=== PATIENT | female | born 1970 | race American Indian/Alaskan Native ===

== ENCOUNTER 2017-05-12 15:21 | Inpatient (IN) | payer MEDICARE, OTHER ==
[2017-05-12 15:21] VITALS: BMI 32.8
[2017-05-12 16:19] LABS: BASO # 0.1 K/uL (0.0-0.2); BASO % 0.9 % (0.0-2.0); EOS % 0.7 % (0.0-4.0); HEMOGLOBIN 9.3 g/dL (11.0-16.0); LYMPH # 1.1 K/uL (1.0-4.3); LYMPH % 18.4 % (20.0-40.0); MEAN CELL VOLUME 67.6 fL (81.0-99.0); MEAN CORPUSCULAR HEMOGLOBIN 20.4 pg (27.0-31.0); MEAN CORPUSCULAR HGB CONC 30.2 g/dL (33.0-37.0); MEAN PLATELET VOLUME 9.3 fL (7.2-11.7); MONO # 0.4 K/uL (0.0-0.8); MONO % 6.5 % (0.0-10.0); NEUT # 4.5 K/uL (1.8-7.0); NEUT % 73.5 % (50.0-75.0); RBC 4.53 Mil/uL (3.80-5.20); RED CELL DISTRIBUTION WIDTH 19.2 % (11.5-14.5); WHITE BLOOD COUNT 6.1 K/uL (4.8-10.8)
[2017-05-12 16:30] LABS: BLOOD UREA NITROGEN 10 mg/dL (7-17); CALCIUM 9.4 mg/dl (8.6-10.4); GFR AFRICAN-AMERICAN > 60; GFR NON-AFRICAN AMERICAN > 60
--- NOTE | 2017-05-12 16:37 | C.PDOC ---
History Of Present Illness 46 yo female w/o significant PMHx come in for evaluation of gradual worsening of painful mass under left breast for past week. Pt sts, was seen by PMD who contacted surgery , recommend go to ED for further treatment. Pt denies frever, chills, known trauma or injury, previous breast condition/ds, denies wound discharge. Ambulate to Ed for evaluation, not in any apparent distress. Time Seen by Provider: 05/12/17 15:47 Chief Complaint (Nursing): Breast Problem History Per: Patient Past Medical History Reviewed: Historical Data, Nursing Documentation, Vital Signs Vital Signs: Last Vital Signs Temp 97.8 F 05/12/17 15:23 Pulse 81 05/12/17 15:23 Resp 20 05/12/17 15:23 BP 139/81 05/12/17 15:23 Pulse Ox 97 05/12/17 16:36 - Medical History PMH: Anemia Denies: Alzheimer's Disease, Anxiety, Arthritis, Asthma, Bipolar Disorder, Bronchitis, Cardia Arrhythmia, CHF, COPD, Crohn's Disease, Dementia, Depression , Diverticulitis, Emphysema, Fibromyalgia, Fractures, Gastrointestinal Ulcer, Gall Bladder Disease, HIV, HTN, Hypercholesterolemia, Hyperthyroidism, Hypothyroidism, Kidney Stones, Migraine, Mitral Valve Prolapse, Osteoporosis, Pancreatitis, Paranoia, Parkinson's Disease, Peripheral Edema, Pneumonia, Post Traumatic Stress Disorder, Chronic Kidney Disease, Schizophrenia, Seizures, Sickle Cell Disease, Sexually Transmitted Disease, Sleep Apnea, TIA Surgical History: Denies: Appendectomy, Cholecystectomy, Coronary Stent, Pacemaker - [facility] Procedures FLUOROSCOPY OF LEFT HEART USING LOW OSMOLAR CONTRAST (07/06/16) FLUOROSCOPY OF MULT COR ART USING L OSM CONTRAST (07/06/16) INSPECTION OF UPPER INTESTINAL TRACT, ENDO (07/06/16) MEASURE OF CARDIAC SAMPL & PRESSURE, L HEART, PERC APPROACH (07/06/16) TRANSFUSE NONAUT RED BLOOD CELLS IN PERIPH VEIN, PERC (07/06/16) Family History: States: No Known Family Hx - Social History Hx Alcohol Use: Yes Hx Substance Use: No (occ marijuana) - Immunization History Hx Tetanus Toxoid Vaccination: No Hx Influenza Vaccination: No Hx Pneumococcal Vaccination: No Review Of Systems Except As Marked, All Systems Reviewed And Found Negative. Constitutional: Negative for: Fever, Chills ENT: Negative for: Throat Pain Cardiovascular: Negative for: Chest Pain Respiratory: Negative for: Cough, Shortness of Breath, Wheezing Skin: Positive for: Lesions Neurological: Negative for: Altered Mental Status, Headache, Dizziness Physical Exam - Physical Exam Appears: Well, Non-toxic, No Acute Distress Skin: Normal Color, Warm, Other (Left breast: (+)tender mass 4cm diameter under breast at 6 o'clock, mild surrounding erythema, (+) flactulance. No proximal streaking.) Eye(s): bilateral: PERRL Oral Mucosa: Moist Throat: No Drooling Neck: Trachea Midline, Supple Lymphatic: No Axilla Node Tenderness (B/L) Cardiovascular: Rhythm Regular, No Murmur, No JVD Respiratory: No Decreased Breath Sounds, No Accessory Muscle Use, No Stridor, No Wheezing Gastrointestinal/Abdominal: Soft, No Tenderness Extremity: No Pedal Edema, No Deformity, No Swelling Neurological/Psych: Oriented x3, Normal Speech ED Course And Treatment - Laboratory Results Result Diagrams: 05/12/17 16:15 05/12/17 16:15 Lab Interpretation: No Changes Compared To Prior Results O2 Sat by Pulse Oximetry: 97 Pulse Ox Interpretation: Normal Progress Note: case discussed with , admission to OR to his service recommend. Discussed with pt, agrees with plan. Disposition - Disposition Disposition: HOSPITALIZED Disposition Time: 16:34 Condition: STABLE - Clinical Impression Clinical Impression: Abscess of breast
[2017-05-12 17:11] LABS: INR 1.1
[2017-05-12 18:04] LABS: HCG,QUALITATIVE URINE NEGATIVE (NEGATIVE); SQUAMOUS EPITHIAL 5 /hpf (0-5); URINE BACTERIA RARE (<OCC); URINE BILIRUBIN NEGATIVE (NEGATIVE); URINE BLOOD NEGATIVE (NEGATIVE); URINE CLARITY Hazy (Clear); URINE COLOR Yellow (YELLOW); URINE GLUCOSE (UA) NORMAL (Normal); URINE LEUKOCYTE ESTERASE NEG Leu/uL (Negative); URINE PROTEIN NEGATIVE (NEGATIVE); URINE UROBILINOGEN NORMAL mg/dL (0.2-1.0)
[2017-05-12] MEDS ORDERED: ceFAZolin IV 1 gm in Dextrose 1 GM/50 ML BAG IVPB ONE (18:11)
[2017-05-12] MEDS ORDERED: HYDROmorphone 0.5 mg/0.5 ml ISec IVP PRN (18:32)
[2017-05-12] MEDS ORDERED: Propofol 10 mg/ml Inj (20 ML) ONE (18:53)
[2017-05-12] MEDS ORDERED: Midazolam 2 MG/2 ML VIAL ONE (18:53)
[2017-05-12] MEDS ORDERED: Lactated Ringer's 1,000 ML IV ONE (19:00)
[2017-05-12] MEDS ORDERED: Oxycodone/Acetaminophen 5/325 mg Tab PO PRN (21:26)
[2017-05-12] MEDS: Sodium Chloride 0.45% 1,000 ML IV SCH (22:29)
[2017-05-12] MEDS: ceFAZolin 1 GM in Sodium Chloride 0.9% 100 ML IVPB SCH (23:55)
[2017-05-13] MEDS ORDERED: Pneumococcal 23-Valent Vaccine IM ONE (05:06)
[2017-05-13] MEDS ORDERED: Influenza Vaccine 60 mcg/0.5 mL SYR (4YR UP) IM ONE (05:07)
--- NOTE | 2017-05-13 07:16 | OP ---
PROCEDURE DATE: 05/12/2017 PREOPERATIVE DIAGNOSIS: Abscess of the left breast. POSTOPERATIVE DIAGNOSIS: Abscess of the left breast. PROCEDURE PERFORMED: Drainage of abscess and excision of infected cyst of the left breast. SURGEON: Derrek Barnard MD ANESTHESIA: General. BLOOD LOSS: 30 mL. POSTOPERATIVE CONDITION: Stable. INDICATIONS FOR SURGERY: This is a 46-year-old female with a large abscess of the left breast, admitted for incision and drainage. DESCRIPTION OF PROCEDURE: The patient was taken to the operating room, general anesthesia was administered. The left breast was prepped and draped. An elliptical incision was made surrounding the abscess cavity. A mixture of pus and sebum were encountered and a large infected sebaceous cyst was excised and pus was drained. Bleeding was controlled using the Bovie. Blood vessel at the base near the chest wall was repaired. The wound was irrigated with copious amounts of saline solution. A full-thickness tissue flap closure was performed at the periphery. Central portion of wound was packed with wet saline gauze. The patient tolerated the procedure well and returned to recovery room in stable condition. Derrek Barnard MD
[2017-05-13] MEDS: ceFAZolin 1 GM in Sodium Chloride 0.9% 100 ML IVPB SCH ×4 (08:07→23:30)
[2017-05-13 11:30] LABS: BASO % 0.9 % (0.0-2.0); EOS # 0.1 K/uL (0.0-0.7); EOS % 1.4 % (0.0-4.0); HEMOGLOBIN 8.1 g/dL (11.0-16.0); LYMPH # 0.9 K/uL (1.0-4.3); MEAN CELL VOLUME 67.1 fL (81.0-99.0); MEAN CORPUSCULAR HEMOGLOBIN 21.1 pg (27.0-31.0); MEAN CORPUSCULAR HGB CONC 31.5 g/dL (33.0-37.0); MONO # 0.3 K/uL (0.0-0.8); MONO % 8.5 % (0.0-10.0); NEUT # 2.6 K/uL (1.8-7.0); NEUT % 66.2 % (50.0-75.0); NRBC % 0.1 % (0.0-2.0); RBC 3.83 Mil/uL (3.80-5.20); RED CELL DISTRIBUTION WIDTH 18.6 % (11.5-14.5); WHITE BLOOD COUNT 3.9 K/uL (4.8-10.8)
[2017-05-13 11:41] LABS: ALBUMIN 3.6 g/dL (3.5-5.0); ALT/SGPT 22 U/L (9-52); AST/SGOT 22 U/L (14-36); BLOOD UREA NITROGEN 8 mg/dL (7-17); CALCIUM 8.2 mg/dl (8.6-10.4); GFR AFRICAN-AMERICAN > 60; GFR NON-AFRICAN AMERICAN > 60
--- NOTE | 2017-05-13 12:30 | CP.PCM.CON ---
History of Present Illness - History of Present Illness History of Present Illness: 46 yo female w/o significant PMHx come in for evaluation of gradual worsening of painful mass under left breast for past week. Pt sts, was seen by PMD who contacted surgery , recommend go to ED for further treatment. Pt denies frever, chills, known trauma or injury, previous breast condition/ds, denies wound discharge. Ambulate to Ed for evaluation, not in any apparent distress. WENT TO OR FOR I AND D CULTURES PENDING - Medical History PMH: Anemia Denies: Alzheimer's Disease, Anxiety, Arthritis, Asthma, Bipolar Disorder, Bronchitis, Cardia Arrhythmia, CHF, COPD, Crohn's Disease, Dementia, Depression , Diverticulitis, Emphysema, Fibromyalgia, Fractures, Gastrointestinal Ulcer, Gall Bladder Disease, HIV, HTN, Hypercholesterolemia, Hyperthyroidism, Hypothyroidism, Kidney Stones, Migraine, Mitral Valve Prolapse, Osteoporosis, Pancreatitis, Paranoia, Parkinson's Disease, Peripheral Edema, Pneumonia, Post Traumatic Stress Disorder, Chronic Kidney Disease, Schizophrenia, Seizures, Sickle Cell Disease, Sexually Transmitted Disease, Sleep Apnea, TIA Surgical History: Denies: Appendectomy, Cholecystectomy, Coronary Stent, Pacemaker - [facility] Procedures FLUOROSCOPY OF LEFT HEART USING LOW OSMOLAR CONTRAST (07/06/16) FLUOROSCOPY OF MULT COR ART USING L OSM CONTRAST (07/06/16) INSPECTION OF UPPER INTESTINAL TRACT, ENDO (07/06/16) MEASURE OF CARDIAC SAMPL & PRESSURE, L HEART, PERC APPROACH (07/06/16) TRANSFUSE NONAUT RED BLOOD CELLS IN PERIPH VEIN, PERC (07/06/16) Review of Systems - Constitutional Constitutional: As Per HPI - EENT Eyes: absent: As Per HPI, Blind Spots, Blurred Vision, Change in Vision, Decreased Night Vision, Diplopia, Discharge, Dry Eye, Exophthalmos, Floaters, Irritation, Itchy Eyes, Loss of Peripheral Vision, Pain, Photophobia, Requires Corrective Lenses, Sees Flashes, Spots in Vision, Tunnel Vision, Other Visual Disturbances, Loss of Vision, Other Ears: absent: As Per HPI, Decreased Hearing, Ear Discharge, Ear Pain, Tinnitus, Abnormal Hearing, Disequilibrium, Dizziness, Other Nose/Mouth/Throat: absent: As Per HPI, Epistaxis, Nasal Congestion, Nasal Discharge, Nasal Obstruction, Nasal Trauma, Nose Pain, Post Nasal Drip, Sinus Pain, Sinus Pressure, Bleeding Gums, Change in Voice, Dental Pain, Dry Mouth, Dysphagia, Halitosis, Hoarsness, Lip Swelling, Mouth Lesions, Mouth Pain, Odynophagia, Sore Throat, Throat Swelling, Tongue Swelling, Facial Pain, Neck Pain, Neck Mass, Other - Breasts Breasts: absent: As Per HPI, Change in Shape, Mass, Pain, Nipple Discharge, Nipple Inversion, Skin Changes, Swelling, Other - Cardiovascular Cardiovascular: absent: As Per HPI, Acrocyanosis, Chest Pain, Chest Pain at Rest , Chest Pain with Activity, Claudication, Diaphoresis, Dyspnea, Dyspnea on Exertion, Edema, Irregular Heart Rhythm, Pain Radiating to Arm/Neck/Jaw, Leg Edema, Leg Ulcers, Lightheadedness, Orthopnea, Palpitations, Paroxysmal Nocturnal Dyspnea, Pedal Edema, Radiating Pain, Rapid Heart Rate, Slow Heart Rate, Syncope, Other - Respiratory Respiratory: absent: As Per HPI, Cough, Dyspnea, Hemoptysis, Dyspnea on Exertion , Wheezing, Snoring, Stridor, Pain on Inspiration, Chest Congestion, Excessive Mucous Production, Change in Mucous Color, Pain with Coughing, Other - Gastrointestinal Gastrointestinal: absent: As Per HPI, Abdominal Pain, Belching, Bloating, Change in Bowel Habits, Change in Stool Character, Coffee Ground Emesis, Constipation, Cramping, Diarrhea, Dyspepsia, Dysphagia, Early Satiety, Excessive Flatus, Fecal Incontinence, Heartburn, Hematemesis, Hematochezia, Loose Stools, Melena, Nausea, Odynophagia, Temesmus, Vomiting, Other - Genitourinary Genitourinary: absent: As Per HPI, Change in Urinary Stream, Difficulty Urinating, Dysuria, Flank Pain, Hematuria, Pyuria, Nocturia, Urinary Incontinence, Urinary Frequency, Urinary Hesitance, Urinary Urgency, Voiding Freq/Small Amts, Freq UTI, Hx Renal/Bladder Calculi, Hx /Renal Surgery, Bladder Distension, Other - Reproductive: Female Reproductive:Female: absent: As Per HPI, Amenorrhea, Amenorrhea/ Control, Currently Menstual, Cycle <21 Days, Cycle >35 Days, Cycle Variable, Menses 1-7 Days, Menses >/= 8 Days, Menses Variable, Cycle > 4 Weeks Between, No Menses for 6 Months, Heavy Menses, Light Menses, Normal Menses, Spotting Between Cycles , S/P Hysterectomy, Menopausal, Post Menopausal, Premenarche, Abnormal Vaginal Bleeding, Dysmenorrhea, Dyspareunia, Genital Lesions, Genital Pruritis, Pelvic Pain, Prolapse Symptoms, Sexual Dysfunction, Vaginal Discharge, Vaginal Dryness , Vaginal Odor, Vaginal Pruritis, Other - Menstruation Menstruation: absent: As Per HPI, Amenorrhea, Amenorrhea/ Control, Currently Menstual, Cycle <21 Days, Cycle >35 Days, Cycle Variable, Menses 1-7 Days, Menses >/= 8 Days, Menses Variable, Cycle > 4 Weeks Between, No Menses for 6 Months, Heavy Menses, Light Menses, Normal Menses, Spotting Between Cycles , S/P Hysterectomy, Menopausal, Post Menopausal, Premenarche, Abnormal Vaginal Bleeding, Dysmenorrhea, Other - Musculoskeletal Musculoskeletal: absent: As Per HPI, Abnormal Gait, Arthralgias, Atrophy, Back Pain, Deformity, Joint Swelling, Limited Range of Motion, Loss of Height, Muscle Cramps, Muscle Weakness, Myalgias, Neck Pain, Numbness, Radiating Pain into Limb, Stiffness, Tingling, Other - Integumentary Integumentary: As Per HPI, Skin Pain, Wounds - Neurological Neurological: absent: As Per HPI, Abnormal Gait, Abnormal Hearing, Abnormal Movements, Abnormal Speech, Behavioral Changes, Burning Sensations, Confusion, Convulsions, Disequilibrium, Dizziness, Numbness, Focal Weakness, Frequent Falls , Headaches, Lack of Coordination, Loss of Vision, Memory Loss, Paresthesias, Radicular Pain, Restless Legs, Sensory Deficit, Syncope, Tingling, Tremor, Vertigo, Weakness, Other Visual Disturbances, Other - Psychiatric Psychiatric: absent: As Per HPI, Abnormal Sleep Pattern, Anhedonia, Anxiety, Auditory Hallucinations, Behavioral Changes, Change in Appetite, Change in Libido, Confusion, Depression, Difficulty Concentrating, Hallucinations, Homicidal Ideation, Hopelessness, Irritability, Memory Loss, Mood Swings, Panic Attacks, Paranoia, Suicidal Ideation, Visual Hallucinations, Tactile Hallucinations, Other - Endocrine Endocrine: absent: As Per HPI, Change in Body Appearance, Change in Libido, Cold Intolorance, Deepening of Voice, Excessive Sweating, Fatigue, Flushing, Heat Intolorance, Increase in Ring/Shoe/Hat Size, Palpitations, Polydipsia, Polyphagia, Polyuria, Other - Hematologic/Lymphatic Hematologic: absent: As Per HPI, Easy Bleeding, Easy Bruising, Lymphadenopathy, Other Past Patient History - Infectious Disease Hx of Infectious Diseases: None - Past Medical History & Family History Past Medical History?: Yes - Past Social History Smoking Status: Light Smoker < 10 Cigarettes Daily - CARDIAC Hx Cardiac Disorders: No Hx Cardia Arrhythmia: No Hx Congestive Heart Failure: No Hx Hypercholesterolemia: No Hx Hypertension: No Hx Mitral Valve Prolapse: No Hx Pacemaker: No Hx Peripheral Edema: No - PULMONARY Hx Respiratory Disorders: No Hx Asthma: No Hx Bronchitis: No Hx Chronic Obstructive Pulmonary Disease (COPD): No Hx Emphysema: No Hx Pneumonia: No Hx Sleep Apnea: No - NEUROLOGICAL Hx Neurological Disorder: No Hx Alzheimer's Disease: No Hx Dementia: No Hx Migraine: No Hx Parkinson's Disease: No Hx Seizures: No Hx Transient Ischemic Attacks (TIA): No - HEENT Hx HEENT Problems: No Hx Blind: No Hx Cataracts: No Hx Deafness: No Hx Difficulty Chewing: No Hx Epistaxis: No Hx Glaucoma: No Hx Macular Degeneration: No - RENAL Hx Chronic Kidney Disease: No Hx Kidney Stones: No - ENDOCRINE/METABOLIC Hx Endocrine Disorders: No Hx Hyperthyroidism: No Hx Hypothyroidism: No - HEMATOLOGICAL/ONCOLOGICAL Hx Blood Disorders: Yes Hx Anemia: Yes Hx Human Immunodeficiency Virus (HIV): No Hx Sickle Cell Disease: No - INTEGUMENTARY Hx Dermatological Problems: No Hx Basil Cell: No Hx Eczema: No Hx Melanoma: No Hx Psoriasis: No Hx Squamous Cell: No - MUSCULOSKELETAL/RHEUMATOLOGICAL Hx Musculoskeletal Disorders: No Hx Arthritis: No Hx Falls: No Hx Fractures: No Hx Osteoporosis: No - GASTROINTESTINAL Hx Gastrointestinal Disorders: No Hx Crohn's Disease: No Hx Diverticulitis: No Hx Gall Bladder Disease: No Hx Pancreatitis: No - GENITOURINARY/GYNECOLOGICAL Hx Genitourinary Disorders: No Hx Sexually Transmitted Disorders: No - PSYCHIATRIC Hx Psychophysiologic Disorder: No Hx Anxiety: No Hx Bipolar Disorder: No Hx Depression: No Hx Paranoia: No Hx Post Traumatic Stress Disorder: No Hx Schizophrenia: No Hx Substance Use: Yes (marijuana on occasion) - SURGICAL HISTORY Hx Surgeries: No Hx Appendectomy: No Hx Cholecystectomy: No Hx Coronary Stent: No - ANESTHESIA Hx Anesthesia: Yes Hx Anesthesia Reactions: No Hx Malignant Hyperthermia: No Meds Allergies/Adverse Reactions: Allergies Allergy/AdvReac Type Severity Reaction Status Date / Time No Known Allergies Allergy Verified 05/12/17 15:27 - Medications Medications: Current Medications Heparin Sodium (Porcine) (Heparin) 5,000 units SC Q12 [facility] Last Admin: 05/13/17 09:24 Dose: 5,000 units Sodium Chloride (Sodium Chloride 0.45%) 1,000 mls @ 80 mls/hr IV .[id number] [facility] Last Admin: 05/12/17 22:29 Dose: 80 mls/hr Cefazolin Sodium 1 gm/ Sodium (Chloride) 100 mls @ 200 mls/hr IVPB Q8H [facility] PRN Reason: Protocol Last Admin: 05/13/17 08:07 Dose: 200 mls/hr Ketorolac Tromethamine (Toradol) 30 mg IM Q6 PRN PRN Reason: Pain, moderate (4-7) Last Admin: 05/13/17 01:14 Dose: 30 mg Oxycodone/Acetaminophen (Percocet 5/325 Mg Tab) 1 tab PO Q4H PRN PRN Reason: Pain, moderate (4-7) Stop: 05/15/17 21:27 Physical Exam - Constitutional Appears: Non-toxic, Chronically Ill - Head Exam Head Exam: NORMOCEPHALIC - Eye Exam Eye Exam: absent: Scleral icterus - ENT Exam ENT Exam: Mucous Membranes Dry, Normal External Ear Exam - Neck Exam Neck exam: Negative for: Lymphadenopathy, Thyromegaly - Respiratory Exam Respiratory Exam: Decreased Breath Sounds, Clear to Auscultation Bilateral - Cardiovascular Exam Cardiovascular Exam: REGULAR RHYTHM, +S1, +S2 - GI/Abdominal Exam GI & Abdominal Exam: Diminished Bowel Sounds, Distended, Soft. absent: Tenderness - Rectal Exam Rectal Exam: Deferred - Exam Exam: NORMAL INSPECTION - Extremities Exam Extremities exam: Negative for: calf tenderness, pedal edema - Back Exam Back exam: absent: CVA tenderness (L), CVA tenderness (R), paraspinal tenderness - Neurological Exam Neurological exam: Alert, CN II-XII Intact, Oriented x3, Reflexes Normal - Psychiatric Exam Psychiatric exam: Normal Mood - Skin Skin Exam: Dry Additional comments: DRAINAGE UNDER LEFT BREAST PACKING IN PLACE Results - Vital Signs Recent Vital Signs: Last Vital Signs Temp 98.7 F 05/13/17 00:00 Pulse 76 05/13/17 00:00 Resp 20 05/13/17 00:00 BP 104/66 05/13/17 00:00 Pulse Ox 98 05/13/17 00:00 - Labs Result Diagrams: 05/13/17 11:18 05/13/17 11:18 Labs: Laboratory Results - last 24 hr 05/12/17 05/12/17 05/12/17 16:15 16:15 16:54 WBC 6.1 RBC 4.53 Hgb 9.3 L Hct 30.6 L MCV 67.6 L MCH 20.4 L MCHC 30.2 L RDW 19.2 H Plt Count 241 MPV 9.3 Neut % (Auto) 73.5 Lymph % (Auto) 18.4 L [place] % (Auto) 6.5 Eos % (Auto) 0.7 Baso % (Auto) 0.9 Neut # (Auto) 4.5 Lymph # (Auto) 1.1 [place] # (Auto) 0.4 Eos # (Auto) 0.0 Baso # (Auto) 0.1 Differential Comment PT 12.0 INR 1.1 APTT 27 Sodium 141 Potassium 3.8 Chloride 106 Carbon Dioxide 23 Anion Gap 15 BUN 10 Creatinine 0.6 L Est GFR ( Amer) > 60 Est GFR (Non-Af Amer) > 60 Random Glucose 83 Calcium 9.4 Phosphorus Magnesium Total Bilirubin AST ALT Alkaline Phosphatase Total Protein Albumin Globulin Albumin/Globulin Ratio Urine Color Urine Clarity Urine pH Ur Specific [place] Urine Protein Urine Glucose (UA) Urine Ketones Urine Blood Urine Nitrate Urine Bilirubin Urine Urobilinogen Ur Leukocyte Esterase Urine WBC (Auto) Urine RBC (Auto) Ur Squamous Epith Cells Urine Bacteria Urine HCG, Qual 05/12/17 05/13/17 05/13/17 17:49 11:18 11:18 WBC 3.9 L RBC 3.83 Hgb 8.1 L Hct 25.7 L MCV 67.1 L MCH 21.1 L MCHC 31.5 L RDW 18.6 H Plt Count 189 MPV 9.0 Neut % (Auto) 66.2 Lymph % (Auto) 23.0 [place] % (Auto) 8.5 Eos % (Auto) 1.4 Baso % (Auto) 0.9 Neut # (Auto) 2.6 Lymph # (Auto) 0.9 L [place] # (Auto) 0.3 Eos # (Auto) 0.1 Baso # (Auto) 0.0 Differential Comment PT INR APTT Sodium 139 Potassium 3.8 Chloride 105 Carbon Dioxide 24 Anion Gap 14 BUN 8 Creatinine 0.6 L Est GFR ( Amer) > 60 Est GFR (Non-Af Amer) > 60 Random Glucose 84 Calcium 8.2 L Phosphorus 3.2 Magnesium 1.9 Total Bilirubin 0.4 AST 22 ALT 22 Alkaline Phosphatase 89 Total Protein 7.2 Albumin 3.6 Globulin 3.6 Albumin/Globulin Ratio 1.0 Urine Color Yellow Urine Clarity Hazy Urine pH 6.0 Ur Specific [place] 1.019 Urine Protein Negative Urine Glucose (UA) Normal Urine Ketones Negative Urine Blood Negative Urine Nitrate Negative Urine Bilirubin Negative Urine Urobilinogen Normal Ur Leukocyte Esterase Neg Urine WBC (Auto) 1 Urine RBC (Auto) 2 Ur Squamous Epith Cells 5 Urine Bacteria Rare Urine HCG, Qual Negative Assessment & Plan (1) Abscess of breast Status: Acute - Assessment and Plan (Free Text) Assessment: CONT IV RX AND WOUND CARE AWAIT CULTURES TO DETERMINE IF PO OPTION EXISTS
[2017-05-13] MEDS: Sodium Chloride 0.45% 1,000 ML IV SCH ×2 (13:55→21:45)
--- NOTE | 2017-05-13 15:02 | CP.PCM.PN ---
Subjective - Date & Time of Evaluation Date of Evaluation: 05/13/17 Time of Evaluation: 07:35 - Subjective Subjective: This 46 year old female with PMHx of anemia, back pain and sciatica (on oxycodone chronically)- presents to the ED on 05/12/17 for evaluation of gradual worsening of painful mass under left breast for past week. Pt reports she was seen by PMD Dr. Marshall, who contacted surgery , who recommend her for evaluation and surgery at [facility]. At that time, pt denied frever, chills, known trauma or injury, previous breast condition, or wound discharge. Ambulate to Ed for evaluation, not in any apparent distress. Patient seen and examined at bedside this AM. She is resting comfortably s/p I& D of L breast abscess with Dr. Barnard yesterday 05/12/17. She states she is scheduled for another I&D later today. She is having normal BMs, is urinating well, and has no complaints. 12-point review of systems is otherwise negative without any additional acute complaints. PMHx: back pain, sciatica, anemia, H. Pylori infection (2017, treated) PSHx: ovarian cyst removal 2017 NKD Meds - none SocHx: active smoker, denies drinking and drugs FamHx: grand mother with heart dx and from stroke Objective - Vital Signs/Intake and Output Vital Signs (last 24 hours): Temp Pulse Resp BP Pulse Ox 98.7 F 76 20 104/66 98 05/13/17 00:00 05/13/17 00:00 05/13/17 00:00 05/13/17 00:00 05/13/17 00:00 Intake and Output: 05/13/17 05/13/17 06:59 18:59 Intake Total 680 Balance 680 - Medications Medications: Current Medications Ferric Sodium Gluconate Complex (Ferrlecit) 125 mg IVPB ONCE ONE Stop: 05/13/17 16:01 Heparin Sodium (Porcine) (Heparin) 5,000 units SC Q12 [facility] Last Admin: 05/13/17 09:24 Dose: 5,000 units Sodium Chloride (Sodium Chloride 0.45%) 1,000 mls @ 80 mls/hr IV .[id number] [facility] Last Admin: 05/13/17 13:55 Dose: 80 mls/hr Cefazolin Sodium 1 gm/ Sodium (Chloride) 100 mls @ 200 mls/hr IVPB Q8H [facility] PRN Reason: Protocol Last Admin: 05/13/17 14:34 Dose: 100 mls Ketorolac Tromethamine (Toradol) 30 mg IM Q6 PRN PRN Reason: Pain, moderate (4-7) Last Admin: 05/13/17 01:14 Dose: 30 mg Oxycodone/Acetaminophen (Percocet 5/325 Mg Tab) 1 tab PO Q4H PRN PRN Reason: Pain, moderate (4-7) Stop: 05/15/17 21:27 - Labs Labs: 05/13/17 11:18 05/13/17 11:18 PT 12.0 SECONDS (9.7-12.2) 05/12/17 16:54 INR 1.1 05/12/17 16:54 APTT 27 SECONDS (21-34) 05/12/17 16:54 - Additional Findings Additional findings: - Constitutional Appears: Well, No Acute Distress - Head Exam Head Exam: ATRAUMATIC, NORMOCEPHALIC - Eye Exam Eye Exam: Normal appearance - ENT Exam ENT Exam: Mucous Membranes Moist - Respiratory Exam Respiratory Exam: Clear to Auscultation Bilateral, NORMAL BREATHING PATTERN. absent: Rales, Rhonchi, Wheezes, Respiratory Distress - Cardiovascular Exam Cardiovascular Exam: REGULAR RHYTHM, +S1, +S2 - GI/Abdominal Exam GI & Abdominal Exam: Normal Bowel Sounds, Soft. absent: Distended, Firm, Guarding, Hernia, Organomegaly, Rigid, Tenderness - Extremities Exam Extremities exam: Negative for: joint swelling, pedal edema - Neurological Exam Neurological exam: Alert, Oriented x3 - Psychiatric Exam Psychiatric exam: Normal Affect, Normal Mood - Skin Skin Exam: Dry, Intact, Normal Color, Warm - L breast bandage is CDI. Assessment and Plan - Assessment and Plan (Free Text) Assessment: Abscess of Left Breast 05/13: s/p I&D of L breast abscess with Dr. Barnard yesterday 05/12/17. She states she is scheduled for another I&D later today. -ID Consult, Dr. Mosley, f/u recs - Cefazoline 1Gm IVPB Q8H (started 05/12) -Percocet 5/325 1tab PO q4H PRN pain, moderate -Toradol 30mg IM Q6H PRN pain, moderate Hx of Iron Deficient Anemia 05/13: f/u Fe / TIBC / % Sat - Hgb 8 - Ferrlecit 125mg IVPB once Prophylaxis NS 0.45 at 80cc/hr Heparin 5000u SC Q12H
[2017-05-13] MEDS ORDERED: Midazolam 2 MG/2 ML VIAL ONE (15:07)
[2017-05-13] MEDS ORDERED: Propofol 10 mg/ml Inj (20 ML) ONE (15:08)
[2017-05-13] MEDS ORDERED: HYDROmorphone 0.5 mg/0.5 ml ISec IVP PRN (15:51)
[2017-05-13] MEDS ORDERED: Ferric Sodium Gluconat Complex 62.5 mg/5 ml Vial IVPB ONE (16:00)
[2017-05-13] MEDS: Lactated Ringer's 1,000 ML IV SCH (17:24)
[2017-05-13] MEDS ORDERED: Ferric Sodium Gluconat Complex 125 MG in Sodium Chloride 0.9% 100 ML IVPB ONE (19:00)
--- NOTE | 2017-05-14 00:28 | OP ---
PROCEDURE DATE: 05/13/2017 PREOPERATIVE DIAGNOSIS: Extensive left breast abscess, status post incision and drainage. POSTOPERATIVE DIAGNOSIS: Extensive left breast abscess, status post incision and drainage. PROCEDURE: Change of the VAC debridement, pulse irrigation of large left breast abscess . SURGEON: Derrek Barnard MD ESTIMATED BLOOD LOSS: 40 mL. POSTOPERATIVE CONDITION: Stable. INDICATIONS FOR SURGERY: This is a staged procedure where the patient is taken back after an initial incision and drainage yesterday of a large abscess of the left breast. She was taken back today for changing packing under anesthesia. Pulse irrigation, cleansing, re-drainage in preparation for possible closure prior to discharge. DESCRIPTION OF PROCEDURE: The patient was taken to the operating room and general anesthesia was administered to left breast, packing was removed and prepped and draped. Prior to being prepped and draped the wound was re-cultured. After some small amount of pus was drained, the wound was aggressively debrided. Bleeding was controlled using the Bovie. Larger blood vessels were repaired. It was then pulse irrigated with saline and solution and a partial tissue transfer closure was performed. The central portion of wound packed upon with saline gauze. The patient tolerated the procedure well and returned to recovery room in stable condition. Derrek Barnard MD
[2017-05-14] MEDS: Sodium Chloride 0.45% 1,000 ML IV SCH ×2 (00:45→22:47)
[2017-05-14] MEDS: Lactated Ringer's 1,000 ML IV SCH ×2 (05:20→18:40)
--- NOTE | 2017-05-14 06:23 | HP ---
HISTORY OF PRESENT ILLNESS: A 46-year-old female admitted to the hospital with chief complaint of left breast abscess. The patient was seen in the office with a large abscess of left breast. Advised to go to the emergency room, where she had an I and D done. Advised admission for further management because of anemia, iron-deficiency. PHYSICAL EXAMINATION: GENERAL: The patient is awake, alert, and oriented. VITAL SIGNS: Temperature 98, pulse 90. HEENT: Within normal limits. NECK: Supple. CHEST: Symmetrical. HEART: Regular. ABDOMEN: Soft EXTREMITIES: No edema. BREASTS: The left breast is . IMPRESSION: The patient suffered from breast abscess, anemia. Continue intravenous antibiotics. ____ evaluation. Kimberly Marshall MD
[2017-05-14] MEDS: ceFAZolin 1 GM in Sodium Chloride 0.9% 100 ML IVPB SCH ×3 (07:05→22:46)
[2017-05-14 07:08] LABS: BASO % 0.6 % (0.0-2.0); EOS # 0.1 K/uL (0.0-0.7); EOS % 1.5 % (0.0-4.0); HEMOGLOBIN 8.3 g/dL (11.0-16.0); LYMPH # 1.1 K/uL (1.0-4.3); MEAN CELL VOLUME 66.5 fL (81.0-99.0); MEAN CORPUSCULAR HEMOGLOBIN 21.1 pg (27.0-31.0); MEAN CORPUSCULAR HGB CONC 31.7 g/dL (33.0-37.0); MEAN PLATELET VOLUME 9.4 fL (7.2-11.7); MONO # 0.4 K/uL (0.0-0.8); MONO % 7.3 % (0.0-10.0); NEUT # 3.6 K/uL (1.8-7.0); NEUT % 68.6 % (50.0-75.0); NRBC % 0.2 % (0.0-2.0); RBC 3.94 Mil/uL (3.80-5.20); WHITE BLOOD COUNT 5.2 K/uL (4.8-10.8)
[2017-05-14 08:05] LABS: ALB/GLOB RATIO 0.9 (1.0-2.1); ALBUMIN 3.6 g/dL (3.5-5.0); ALT/SGPT 31 U/L (9-52); AST/SGOT 27 U/L (14-36); BLOOD UREA NITROGEN 8 mg/dL (7-17); CALCIUM 8.4 mg/dl (8.6-10.4); GFR AFRICAN-AMERICAN > 60; GFR NON-AFRICAN AMERICAN > 60
--- NOTE | 2017-05-14 09:20 | CP.PCM.PN ---
Subjective - Date & Time of Evaluation Date of Evaluation: 05/14/17 Time of Evaluation: 07:15 - Subjective Subjective: PGY2 Resident - Medicine Progress Note Patient seen and examined at bedside this AM. She is resting comfortably s/p I& D of L breast abscess with Dr. Barnard 05/12/17. She is scheduled for the OR later today, this time for pulse-irrigation and closure of the abscess. She denies constipation and is urinating well. She denies any overt tenderness or discomfort. 12-point review of systems is otherwise negative without any additional acute complaints. Objective - Vital Signs/Intake and Output Vital Signs (last 24 hours): Temp Pulse Resp BP Pulse Ox 98.1 F 79 20 132/83 100 05/14/17 07:58 05/14/17 07:58 05/14/17 07:58 05/14/17 07:58 05/14/17 07:58 Intake and Output: 05/14/17 05/14/17 06:59 18:59 Intake Total 640 Balance 640 - Medications Medications: Current Medications Heparin Sodium (Porcine) (Heparin) 5,000 units SC Q12 [facility] Last Admin: 05/14/17 09:13 Dose: Not Given Sodium Chloride (Sodium Chloride 0.45%) 1,000 mls @ 80 mls/hr IV .[id number] [facility] Last Admin: 05/14/17 00:45 Dose: 80 mls/hr Cefazolin Sodium 1 gm/ Sodium (Chloride) 100 mls @ 200 mls/hr IVPB Q8H [facility] PRN Reason: Protocol Last Admin: 05/14/17 07:05 Dose: 200 mls/hr Lactated Ringer's (Lactated Ringer's) 1,000 mls @ 150 mls/hr IV .Q6H40M [facility] Last Admin: 05/14/17 05:20 Dose: Not Given Ketorolac Tromethamine (Toradol) 30 mg IM Q6 PRN PRN Reason: Pain, moderate (4-7) Last Admin: 05/14/17 09:12 Dose: 30 mg Oxycodone/Acetaminophen (Percocet 5/325 Mg Tab) 1 tab PO Q4H PRN PRN Reason: Pain, moderate (4-7) Stop: 05/15/17 21:27 - Labs Labs: 05/14/17 06:50 05/14/17 06:50 PT 12.0 SECONDS (9.7-12.2) 05/12/17 16:54 INR 1.1 05/12/17 16:54 APTT 27 SECONDS (21-34) 05/12/17 16:54 - Additional Findings Additional findings: - Constitutional Appears: Well, No Acute Distress - Head Exam Head Exam: ATRAUMATIC, NORMOCEPHALIC - Eye Exam Eye Exam: Normal appearance - ENT Exam ENT Exam: Mucous Membranes Moist - Respiratory Exam Respiratory Exam: Clear to Auscultation Bilateral, NORMAL BREATHING PATTERN. absent: Rales, Rhonchi, Wheezes, Respiratory Distress - Cardiovascular Exam Cardiovascular Exam: REGULAR RHYTHM, +S1, +S2 - GI/Abdominal Exam GI & Abdominal Exam: Normal Bowel Sounds, Soft. absent: Distended, Firm, Guarding, Hernia, Organomegaly, Rigid, Tenderness - Extremities Exam Extremities exam: Negative for: joint swelling, pedal edema - Neurological Exam Neurological exam: Alert, Oriented x3 - Psychiatric Exam Psychiatric exam: Normal Affect, Normal Mood - Skin Skin Exam: Dry, Intact, Normal Color, Warm - L breast bandage is CDI. Assessment and Plan - Assessment and Plan (Free Text) Assessment: Abscess of Left Breast 05/14: scheduled for the OR later today, this time for pulse-irrigation and closure of the abscess. 05/13: s/p I&D of L breast abscess with Dr. Barnard yesterday 05/12/17. She states she is scheduled for another I&D later today. -ID Consult, Dr. Mosley, f/u recs - Cefazoline 1Gm IVPB Q8H (started 05/12) -Percocet 5/325 1tab PO q4H PRN pain, moderate -Toradol 30mg IM Q6H PRN pain, moderate Hx of Iron Deficient Anemia 05/14: Patient received one dose of Ferrlecit yesterday Fe 69 / TIBC 367 / % Sat 19 L - Hgb 8 - Ferrlecit 125mg IVPB once Prophylaxis NS 0.45 at 80cc/hr Heparin 5000u SC Q12H Case discussed with attending. All medical management as per Dr. Kingsley Marshall.
[2017-05-14] MEDS: Potassium Chloride 20 mEq/15 ml LIQ UD PO SCH ×3 (09:53→17:46)
[2017-05-14 10:55] LABS: IRON 69 ug/dL (37-170)
[2017-05-14 11:05] LABS: % IRON SATURATION 19 (20-55); TOTAL IRON BINDING CAPACITY 367 ug/dL (250-450)
[2017-05-14] MEDS ORDERED: Propofol 10 mg/ml Inj (20 ML) ONE (15:02)
[2017-05-14] MEDS ORDERED: Lactated Ringer's 1,000 ML IV ONE (15:35)
[2017-05-14] MEDS ORDERED: Bacitracin Ointment 30 GM TUBE ONE (15:50)
[2017-05-14] MEDS ORDERED: HYDROmorphone 0.5 mg/0.5 ml ISec IVP PRN (15:57)
[2017-05-14] MEDS ORDERED: Potassium Chloride 20 mEq/15 ml LIQ UD PO ONE (22:00)
[2017-05-15] MEDS: Lactated Ringer's 1,000 ML IV SCH ×2 (01:37→09:27)
--- NOTE | 2017-05-15 02:02 | OP ---
PROCEDURE DATE: 05/12/2017 PREOPERATIVE DIAGNOSIS: Open wound left breast secondary to breast abscess. POSTOPERATIVE DIAGNOSIS: Open wound left breast secondary to breast abscess. PROCEDURE PERFORMED: Debridement of left chest wall wound with repair of blood vessel and tissue flap closure. SURGEON: Derrek Barnard MD ANESTHESIA: General. BLOOD LOSS: 40 mL. CONDITION: Stable. INDICATION FOR SURGERY: This is staged procedure where a 46-year-old female underwent an incision and drainage of a large breast abscess and a change of packing in the OR on postop day number one due to the size of the wound. Today she is taken back for a staged debridement closure of the wound. DESCRIPTION OF PROCEDURE: The patient was taken to the operating room, general anesthesia was administered. The previous packing was removed. The left breast was prepped and draped. There is a fair amount of bleeding within the wound and the vessel was identified and repaired. The wound was pulse irrigated and aggressively debrided. Generous advancement flaps were raised and an advancement flap closure was performed, multiple layers of Monocryl, subcuticular Monocryl. The patient tolerated the procedure well. Returned to recovery room in stable condition. Derrek Barnard MD
[2017-05-15] MEDS: ceFAZolin 1 GM in Sodium Chloride 0.9% 100 ML IVPB SCH (06:00)
[2017-05-15 07:21] LABS: BASO % 0.5 % (0.0-2.0); EOS # 0.1 K/uL (0.0-0.7); HEMOGLOBIN 8.2 g/dL (11.0-16.0); LYMPH # 1.1 K/uL (1.0-4.3); LYMPH % 28.4 % (20.0-40.0); MEAN CORPUSCULAR HEMOGLOBIN 21.4 pg (27.0-31.0); MEAN PLATELET VOLUME 8.7 fL (7.2-11.7); MONO # 0.4 K/uL (0.0-0.8); MONO % 8.8 % (0.0-10.0); NEUT # 2.4 K/uL (1.8-7.0); NEUT % 60.3 % (50.0-75.0); RBC 3.83 Mil/uL (3.80-5.20); RED CELL DISTRIBUTION WIDTH 18.9 % (11.5-14.5)
[2017-05-15 07:48] LABS: ALBUMIN 3.6 g/dL (3.5-5.0); ALT/SGPT 22 U/L (9-52); AST/SGOT 23 U/L (14-36); BLOOD UREA NITROGEN 7 mg/dL (7-17); CALCIUM 8.7 mg/dl (8.6-10.4); GFR AFRICAN-AMERICAN > 60; GFR NON-AFRICAN AMERICAN > 60
[2017-05-15 08:39] VITALS: BP 122/76; PULSE 77; RESP 20; TEMP 97.8; O2SAT 98
[2017-05-15] MEDS ORDERED: Pantoprazole 40 mg EC Tab PO SCH (10:00)
[2017-05-15] MEDS: Sodium Chloride 0.45% 1,000 ML IV SCH (12:00)
--- NOTE | 2017-05-15 12:52 | CP.PCM.PN ---
Subjective - Date & Time of Evaluation Date of Evaluation: 05/15/17 Time of Evaluation: 12:52 - Subjective Subjective: PGY2 Medicine note for Dr. Marshall; all management as per Dr. Marshall The patient is stable for d/c as per Dr. Marshall; she has no complaints today. Objective - Vital Signs/Intake and Output Vital Signs (last 24 hours): Temp Pulse Resp BP Pulse Ox 97.8 F 77 20 122/76 98 05/15/17 08:38 05/15/17 08:38 05/15/17 08:38 05/15/17 08:38 05/15/17 08:38 Intake and Output: 05/15/17 05/15/17 06:59 18:59 Intake Total 740 Balance 740 - Medications Medications: Current Medications Heparin Sodium (Porcine) (Heparin) 5,000 units SC Q12 [facility] Last Admin: 05/15/17 09:55 Dose: Not Given Sodium Chloride (Sodium Chloride 0.45%) 1,000 mls @ 80 mls/hr IV .[id number] [facility] Last Admin: 05/15/17 12:00 Dose: Not Given Cefazolin Sodium 1 gm/ Sodium (Chloride) 100 mls @ 200 mls/hr IVPB Q8H [facility] PRN Reason: Protocol Last Admin: 05/15/17 06:00 Dose: 200 mls/hr Lactated Ringer's (Lactated Ringer's) 1,000 mls @ 150 mls/hr IV .Q6H40M [facility] Last Admin: 05/15/17 09:27 Dose: Not Given Ketorolac Tromethamine (Toradol) 30 mg IM Q6 PRN PRN Reason: Pain, moderate (4-7) Last Admin: 05/14/17 09:12 Dose: 30 mg Oxycodone/Acetaminophen (Percocet 5/325 Mg Tab) 1 tab PO Q4H PRN PRN Reason: Pain, moderate (4-7) Stop: 05/15/17 21:27 Last Admin: 05/15/17 01:41 Dose: 1 tab Pantoprazole Sodium (Protonix Ec Tab) 40 mg PO DAILY [facility] Last Admin: 05/15/17 09:23 Dose: 40 mg - Labs Labs: 05/15/17 07:10 05/15/17 07:10 PT 12.0 SECONDS (9.7-12.2) 05/12/17 16:54 INR 1.1 05/12/17 16:54 APTT 27 SECONDS (21-34) 05/12/17 16:54 - Constitutional Appears: Well, Non-toxic - Head Exam Head Exam: ATRAUMATIC - Eye Exam Eye Exam: EOMI, Normal appearance - ENT Exam ENT Exam: Mucous Membranes Moist - Neck Exam Neck Exam: Full ROM. absent: Lymphadenopathy - Respiratory Exam Respiratory Exam: Clear to Ausculation Bilateral, NORMAL BREATHING PATTERN. absent: Rales, Rhonchi, Wheezes - Cardiovascular Exam Cardiovascular Exam: REGULAR RHYTHM, +S1, +S2 Additional comments: breast examined with female die engraving supervisor medical student in room; patient has gauze applied to area that is clean dry and intact no signs of pus draining and non painful to palpation - GI/Abdominal Exam GI & Abdominal Exam: Soft, Normal Bowel Sounds. absent: Tenderness - Extremities Exam Extremities Exam: Full ROM. absent: Calf Tenderness - Back Exam Back Exam: NORMAL INSPECTION. absent: CVA tenderness (L), CVA tenderness (R) - Neurological Exam Neurological Exam: Alert, Awake, Oriented x3 - Psychiatric Exam Psychiatric exam: Normal Affect Assessment and Plan - Assessment and Plan (Free Text) Assessment: Abscess of Left Breast 05/15: abscess closed; clean and dry; patient can take showers 05/14: scheduled for the OR later today, this time for pulse-irrigation and closure of the abscess. 05/13: s/p I&D of L breast abscess with Dr. Barnard yesterday 05/12/17. She states she is scheduled for another I&D later today. -ID Consult, Dr. Mosley, f/u recs - Cefazoline 1Gm IVPB Q8H (started 05/12) -Percocet 5/325 1tab PO q4H PRN pain, moderate -Toradol 30mg IM Q6H PRN pain, moderate Hx of Iron Deficient Anemia; to continue with home iron 05/14: Patient received one dose of Ferrlecit yesterday Fe 69 / TIBC 367 / % Sat 19 L - Hgb 8 - Ferrlecit 125mg IVPB once Prophylaxis NS 0.45 at 80cc/hr Heparin 5000u SC Q12H Case discussed with attending. All medical management as per Dr. Kingsley Marshall. The patient is stable for d/c according to Dr. Marshall The patient will need to take bactrim BID for 14 days with florastor or belgian yogurt the patient needs to f/u with Dr. Barnard in one weeks time told to come back to the ED if pain gets worse, discharge, fevers/chills/ vomiting/shortness of breath.
== END 2017-05-15 14:15 | disposition home or self-care (01) | DRG 601 ==
LOC: C.ER 15:21 → C.3T 20:36 → C.9E 20:36 → C.3T 05-14 16:45
PROVIDERS: ADMIT Internal Medicine Pulmonary Disease; ATTEND Internal Medicine Pulmonary Disease
PROC: 0JD63ZZ Extraction of Chest Subcutaneous Tissue and Fascia, Percutaneous Approach (ICD-10-PCS; 2017-05-12)
PROC: 0H9U0ZZ Drainage of Left Breast, Open Approach (ICD-10-PCS; principal; 2017-05-12 19:00)
PROC: 0H9UXZZ (ICD-10-PCS; 2017-05-13)
PROC: 0H9U0ZZ Drainage of Left Breast, Open Approach (ICD-10-PCS; 2017-05-14)
DX: N61.1 Abscess of the breast and nipple (principal); D64.9 Anemia, unspecified; Z87.891 Personal history of nicotine dependence